=== PATIENT | female | born 1980 | race African-American/Black ===

== ENCOUNTER 2016-07-26 10:11 | Emergency (ER) | payer SELFPAY ==
[~2016-07-26] VITALS: Ht 157.5 cm; Wt 77.1 kg
[~2016-07-26 10:11] MED LIST: BACL20TA PO; CYCL5TAB PO; FERR-26 PO; GABA-585 PO; LISI2.5T PO; NORT25CA PO; PROAIR HFA8.5 GM IH; RIVA10TA PO; TOPI25TA32 PO
[2016-07-26 12:33] LABS: BASO % 1 % (0-3); EOS % 1 % (0-3); HEMATOCRIT 36.8 % (36.0-47.0); HEMOGLOBIN 11.8 g/dL (12.0-15.5); LYMPH # 2.2 x10^3/uL (1.0-4.8); LYMPH % 35 % (24-48); MEAN CORPUSCULAR HEMOGLOBIN 27 pg (25-35); MEAN CORPUSCULAR HGB CONC 32 g/dL (31-37); MEAN CORPUSCULAR VOLUME 84 fL (79-100); MONO % 9 % (0-9); NEUT % 54 % (31-73); PLATELET COUNT 197 x10^3/uL (140-400); RED BLOOD COUNT 4.39 x10^6/uL (3.50-5.40); RED CELL DISTRIBUTION WIDTH 17.3 % (11.5-14.5); WHITE BLOOD COUNT 6.3 x10^3/uL (4.0-11.0)
[2016-07-26] MEDS ORDERED: IV NORMAL SALINE 1000ML BAG 1,000 ML IV ONE (12:45)
[2016-07-26 13:00] VITALS: BP 105/69
[2016-07-26] MEDS ORDERED: ACETAMINOPHEN 325 MG TABLET. PO ONE (13:15)
[2016-07-26 13:16] LABS: CALCIUM 8.7 mg/dL (8.5-10.1); GFR 75.5; POTASSIUM 3.9 mmol/L (3.5-5.1)
[2016-07-26 13:21] LABS: ALBUMIN 3.3 g/dL (3.4-5.0); ALBUMIN/GLOBULIN RATIO 0.9 (1.0-1.7); TOTAL BILIRUBIN 0.2 mg/dL (0.2-1.0); TOTAL PROTEIN 6.9 g/dL (6.4-8.2)
[2016-07-26 13:29] LABS: BILIRUBIN,URINE NEGATIVE (NEG); GLUCOSE,URINE NEGATIVE (NEG); NITRITE,URINE NEGATIVE (NEG); PH,URINE 6.5; PROTEIN,URINE NEGATIVE (NEG-TRACE); UROBILINOGEN,URINE 0.2 mg/dL (0.2 mg/dL)
[2016-07-26 13:34] LABS: BARBITURATES NEG (NEG); BENZODIAZEPINES NEG (NEG); CANNABINOIDS NEG (NEG); COCAINE POS (NEG); METHADONE NEG (NEG); OPIATES POS (NEG); PHENCYCLIDINE POS (NEG)
[2016-07-26 13:35] LABS: ETHANOL, URINE NEG (NEG)
[2016-07-26 13:46] LABS: BACTERIA,URINE FEW /HPF (0-FEW); RBC,URINE 0 /HPF (0-2); SQUAMOUS EPITHELIAL CELL,UR MANY /LPF; WBC,URINE 20-40 /HPF (0-4)
[2016-07-26] MEDS ORDERED: NITROFURANTOIN MONOHYD/M-CRYST 100 MG CAPSULE. PO ONE (14:15)
[2016-07-26] MEDS ORDERED: OXCA300T3 PO (14:23)
[2016-07-26] MEDS ORDERED: NITR100C62 PO (14:23)
[2016-07-26] MEDS ORDERED: OXCARBAZEPINE 300 MG TABLET. PO STA (14:24)
--- NOTE | 2016-07-26 14:24 | PHYS DOC ---
Past Medical History Past Medical History: CVA, DVT, Hypertension, Hypothyroid, Kidney Stone, Seizure, Stroke, Other Additional Past Medical Histor: PEMBERTON'S PALSY, TRIGEMINAL NEURALGIA, PE,epilepsy ,clotting disorder Past Surgical History: , Tubal ligation Additional Past Surgical Histo: x 2 Additional Information: 06/14 ppd Alcohol Use: Occasionally Drug Use: Cocaine, Phencyclidine Social History Narrative: reports last used cocaine 4 days ago, PCP 1 week ago Adult General Chief Complaint Chief Complaint: SEIZURE HPI HPI Patient is a 36 year old female who presents with complaint of seizures. Patient states that she has had several seizures over the past few days. Patient states that she is had a within the last 24 hours. The patient states that she is on Trileptal therapy but ran out of her medication. While in the patient room, the patient reported that she had 2 more seizures. These were witnessed the nursing who stated that the patient was trying to get out of bed, and when being helped to the bed the patient started shaking her arms and stating that she was having a seizure. These episodes lasted a few minutes and patient was immediately able to converse during and after the episode. Patient has noted history of substance abuse. Patient states that she has not used PCP or cocaine in over a week. Patient does admit that she is following with [facility] for outpatient substance abuse treatment. Review of Systems Review of Systems Constitutional: Body aches, Denies fever or chills [] Eyes: Denies change in visual acuity, redness, or eye pain [] HENT: Denies nasal congestion or sore throat [] Respiratory: Denies cough or shortness of breath [] Cardiovascular: Denies chest pain or edema [] GI: Denies abdominal pain, nausea, vomiting, bloody stools or diarrhea [] : Denies dysuria or hematuria [] Musculoskeletal: Denies back pain or joint pain [] Integument: Denies rash or skin lesions [] Neurologic: Seizures, Denies headache, focal weakness or sensory changes [] Endocrine: Denies polyuria or polydipsia [] Current Medications Current Medications Current Medications Medications (Trade) Dose Ordered Sig/Zay Start Time Stop Time Status Last Admin Dose Admin Acetaminophen (Tylenol) 650 mg 1X ONCE 07/26/16 13:15 07/26/16 13:16 DC 07/26/16 13:05 650 MG Nitrofurantoin Macrocrystals (Macrobid) 100 mg 1X ONCE 07/26/16 14:15 07/26/16 14:16 DC 07/26/16 14:15 100 MG Oxcarbazepine (Trileptal) 450 mg 1X STAT 07/26/16 14:24 07/26/16 14:27 DC 07/26/16 14:24 450 MG Sodium Chloride (Iv Sodium Chloride 0.9% 1000ml Bag) 1,000 ml @ 1,000 mls/hr 1X ONCE 07/26/16 12:45 07/26/16 13:44 DC 07/26/16 12:45 1,000 MLS/HR Allergies Allergies Allergies Coded Allergies Type Severity Reaction Last Updated Verified ibuprofen Allergy Severe Angioedema. 01/10/14 No ketorolac Allergy Severe Angioedema 01/10/14 Yes naproxen Allergy Severe ANGIOEDEMA 06/02/15 Yes Physical Exam Physical Exam Constitutional: Alert, afebrile, no acute distress. [] HENT: Normocephalic, atraumatic, bilateral external ears normal, oropharynx moist, no oral exudates, nose normal. [] Eyes: PERRLA, EOMI, conjunctiva normal, no discharge. [] Neck: Normal range of motion, no tenderness, supple, no stridor. [] Cardiovascular:Heart rate regular rhythm, no murmur [] Lungs & Thorax: Bilateral breath sounds clear to auscultation [] Abdomen: Bowel sounds normal, soft, no tenderness, no masses, no pulsatile masses. [] Skin: Warm, dry, no erythema, no rash. [] Back: No tenderness, no CVA tenderness. [] Extremities: No tenderness, no cyanosis, no clubbing, ROM intact, no edema. [] Neurologic: Alert and oriented X 3, normal motor function, normal sensory function, no focal deficits noted. [] Current Patient Data Vital Signs Vital Signs Date Time Temp Pulse Resp B/P Pulse Ox O2 Delivery O2 Flow Rate FiO2 07/26/16 13:00 74 20 105/69 100 Room Air 07/26/16 11:15 97.8 97.8 Lab Values Laboratory Tests Test 07/26/16 12:10 07/26/16 12:57 07/26/16 13:10 07/26/16 13:45 White Blood Count 6.3x10^3/uL (4.0-11.0) Red Blood Count 4.39x10^6/uL (3.50-5.40) Hemoglobin 11.8g/dL (12.0-15.5) L Hematocrit 36.8% (36.0-47.0) Mean Corpuscular Volume 84fL (79-100) Mean Corpuscular Hemoglobin 27pg (25-35) Mean Corpuscular Hemoglobin Concent 32g/dL (31-37) Red Cell Distribution Width 17.3% (11.5-14.5) H Platelet Count 197x10^3/uL (140-400) Neutrophils (%) (Auto) 54% (31-73) Lymphocytes (%) (Auto) 35% (24-48) Monocytes (%) (Auto) 9% (0-9) Eosinophils (%) (Auto) 1% (0-3) Basophils (%) (Auto) 1% (0-3) Neutrophils # (Auto) 3.4x10^3uL (1.8-7.7) Lymphocytes # (Auto) 2.2x10^3/uL (1.0-4.8) Monocytes # (Auto) 0.6x10^3/uL (0.0-1.1) Eosinophils # (Auto) 0.1x10^3/uL (0.0-0.7) Basophils # (Auto) 0.0x10^3/uL (0.0-0.2) Lactic Acid Level 4.5mmol/L (0.4-2.0) *H 3.6mmol/L (0.4-2.0) H Sodium Level 141mmol/L (136-145) Potassium Level 3.9mmol/L (3.5-5.1) Chloride Level 106mmol/L (98-107) Carbon Dioxide Level 27mmol/L (21-32) Anion Gap 8 (6-14) Blood Urea Nitrogen 12mg/dL (7-20) Creatinine 1.0mg/dL (0.6-1.0) Estimated GFR (Cockcroft-Gault) 75.5 BUN/Creatinine Ratio 12 (6-20) Glucose Level 90mg/dL (70-99) Calcium Level 8.7mg/dL (8.5-10.1) Total Bilirubin 0.2mg/dL (0.2-1.0) Aspartate Amino Transferase (AST) 14U/L (15-37) L Alanine Aminotransferase (ALT) 17U/L (14-59) Alkaline Phosphatase 65U/L (46-116) Total Protein 6.9g/dL (6.4-8.2) Albumin 3.3g/dL (3.4-5.0) L Albumin/Globulin Ratio 0.9 (1.0-1.7) L Urine Collection Type Unknown Urine Color Yellow Urine Clarity Clear Urine pH 6.5 Urine Specific Ellis 1.010 Urine Protein Negativemg/dL (NEG-TRACE) Urine Glucose (UA) Negativemg/dL (NEG) Urine Ketones (Stick) Negativemg/dL (NEG) Urine Blood Negative (NEG) Urine Nitrite Negative (NEG) Urine Bilirubin Negative (NEG) Urine Urobilinogen Dipstick 0.2mg/dL (0.2 mg/dL) Urine Leukocyte Esterase Large (NEG) Urine RBC 0/HPF (0-2) Urine WBC 20-40/HPF (0-4) Urine Squamous Epithelial Cells Many/LPF Urine Bacteria Few/HPF (0-FEW) Urine Opiates Screen Pos (NEG) Urine Methadone Screen Neg (NEG) Urine Barbiturates Neg (NEG) Urine Phencyclidine Screen Pos (NEG) Urine Amphetamine/Methamphetamine Neg (NEG) Urine Benzodiazepines Screen Neg (NEG) Urine Cocaine Screen Pos (NEG) Urine Cannabinoids Screen Neg (NEG) Urine Ethyl Alcohol Neg (NEG) Laboratory Tests 07/26/16 12:10 Laboratory Tests 07/26/16 12:57 EKG EKG Interpreted by me: Heart rate 77, sinus rhythm, prolonged SD interval, normal axis, no acute ST/T-wave abnormalities present [] Radiology/Procedures Radiology/Procedures Not performed [] Course & Med Decision Making Course & Med Decision Making Pertinent Labs and Imaging studies reviewed. (See chart for details) Patient was given IV fluids in the emergency department. Patient given Tylenol for pain. The patient was found have an elevated lactic acid level which is suspicious for epileptic seizure activity. I have low suspicion for sepsis in this patient as the patient does not have fevers or elevated white count. The patient was found to have an incidental urinary tract infection and was started on oral Macrobid therapy. Patient's vital signs are stable at this time. The patient was started back on Trileptal therapy. Patient was also found to be positive for cocaine which would be suspicious for recent drug use aside from what she admitted to. I sat and spoke and agree with the patient regarding her substance abuse and how this is likely affecting her seizure disorder. The patient will need to discontinue any use of drugs and continue on her seizure medication at home for control. The patient was referred to primary care with recommended follow-up in 3-5 daysand return to emergency department for any worsening symptoms. Dragon Disclaimer Dragon Disclaimer This electronic medical record was generated, in whole or in part, using a voice recognition dictation system. Departure Departure Impression: Primary Impression: UTI (urinary tract infection) Additional Impressions: Polysubstance abuse Seizure disorder Disposition: ADMITTED INPATIENT Condition: STABLE Referrals: KARSTEN GOMEZ (PCP) Patient Instructions: Seizure, Adult, Substance Abuse-Brief, Urinary Tract Infection Additional Instructions: Follow-up the primary doctor in the next 3-5 days. Continue to follow with [facility] for outpatient substance abuse treatment. Return to the emergency department for any worsening symptoms. Scripts Nitrofurantoin Monohyd/M-Cryst (Macrobid 100 Mg Capsule)100 Mg Capsule1 Cap PO BID #14 CAP Prov:JOVON SORTO MD 07/26/16 Oxcarbazepine (Trileptal)300 Mg [id number] Mg PO BID #90 Prov:JOVON SORTO MD 07/26/16 Problem Qualifiers Primary Impression: UTI (urinary tract infection) Urinary tract infection type: site unspecified Hematuria presence: without hematuria Qualified Code: N39.0 - Urinary tract infection, site not specified JOVON SORTO MD Jul 26, 2016 14:23
--- NOTE | 2016-07-26 14:45 | EKG ---
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
== END 2016-07-26 15:12 | disposition home or self-care (01) ==
LOC: ER 10:11
DX: G40.909 Epilepsy, unspecified, not intractable, without status epilepticus (principal); N39.0 Urinary tract infection, site not specified; F19.10 Other psychoactive substance abuse, uncomplicated; F14.10 Cocaine abuse, uncomplicated; F16.10 Hallucinogen abuse, uncomplicated; E03.9 Hypothyroidism, unspecified; I10 Essential (primary) hypertension; F17.200 Nicotine dependence, unspecified, uncomplicated; Z98.51 Tubal ligation status; Z86.73 Personal history of transient ischemic attack (TIA), and cerebral infarction without residual deficits; Z87.442 Personal history of urinary calculi; Z88.6 Allergy status to analgesic agent; Z88.8 Allergy status to other drugs, medicaments and biological substances
CPT/HCPCS: 36415; 80053; 81001; 83605; 85027; 87086; 93005; 96360; 99285; G0481; J7030; 99284-25

== ENCOUNTER 2016-10-03 13:33 | Emergency (ER) | payer SELFPAY ==
[~2016-10-03] VITALS: Ht 154.9 cm; Wt 79.4 kg
[~2016-10-03 13:33] MED LIST changes: +NITR100C62 PO; +OXCA300T3 PO
[2016-10-03] MEDS ORDERED: IV NORMAL SALINE 1000ML BAG 1,000 ML IV ONE (14:30)
[2016-10-03] MEDS ORDERED: FENTANYL PF 100 MCG/2 ML VIAL. IV ONE (14:30)
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
[2016-10-03 15:20] LABS: BASO % 0 % (0-3); EOS % 1 % (0-3); HEMOGLOBIN 11.7 g/dL (12.0-15.5); LYMPH # 2.6 x10^3/uL (1.0-4.8); LYMPH % 35 % (24-48); MEAN CORPUSCULAR HEMOGLOBIN 30 pg (25-35); MEAN CORPUSCULAR HGB CONC 35 g/dL (31-37); MEAN CORPUSCULAR VOLUME 84 fL (79-100); MONO % 7 % (0-9); NEUT % 57 % (31-73); PLATELET COUNT 212 x10^3/uL (140-400); RED BLOOD COUNT 3.94 x10^6/uL (3.50-5.40); RED CELL DISTRIBUTION WIDTH 16.6 % (11.5-14.5); WHITE BLOOD COUNT 7.4 x10^3/uL (4.0-11.0)
[2016-10-03] MEDS ORDERED: IOHEXOL 350 MG/ML 100 ML VIAL. IV ONE (15:30)
[2016-10-03 15:33] LABS: CALCIUM 8.7 mg/dL (8.5-10.1); CREATININE 0.8 mg/dL (0.6-1.0); GFR 97.7; POTASSIUM 3.5 mmol/L (3.5-5.1)
[2016-10-03] MEDS ORDERED: MORPHINE SULFATE 4 MG/ML DISP.SYRIN. IV ONE (15:45)
--- NOTE | 2016-10-03 16:20 | RAD ---
AP portable chest radiograph 10/03/2016 Clinical History: Chest pain since earlier today. An AP portable erect digital radiograph of the chest was obtained. Comparison study is dated 04/09/2013. The cardiac silhouette is normal in size. The thoracic is minimally tortuous. A calcified left hilar/mediastinal lymph node is unchanged. No acute pulmonary infiltrate is seen. No pleural effusion or pneumothorax is noted. The osseous structures are grossly intact. Impression: No acute abnormality is seen.
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
[2016-10-03] MEDS ORDERED: HYDROMORPHONE 2 MG/ML VIAL. IV ONE ×2 (18:00→19:00)
[2016-10-03] MEDS ORDERED: HYDR-971 PO (18:07)
[2016-10-03 18:10] VITALS: BP 111/51
[2016-10-03] MEDS ORDERED: OXCARBAZEPINE 300 MG TABLET. PO STA (18:39)
[2016-10-03] MEDS ORDERED: OXCA600T3 PO (18:42)
--- NOTE | 2016-10-03 22:08 | EKG ---
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
== END 2016-10-03 19:12 | disposition home or self-care (01) ==
LOC: ER 13:33
DX: R07.89 Other chest pain (principal); I10 Essential (primary) hypertension; E03.9 Hypothyroidism, unspecified; G40.909 Epilepsy, unspecified, not intractable, without status epilepticus; F12.10 Cannabis abuse, uncomplicated; F14.10 Cocaine abuse, uncomplicated; F16.10 Hallucinogen abuse, uncomplicated; Z86.711 Personal history of pulmonary embolism; Z86.73 Personal history of transient ischemic attack (TIA), and cerebral infarction without residual deficits; Z79.01 Long term (current) use of anticoagulants; Z86.718 Personal history of other venous thrombosis and embolism; Z88.6 Allergy status to analgesic agent; V89.2XXA Person injured in unspecified motor-vehicle accident, traffic, initial encounter; W22.12XA Striking against or struck by front passenger side automobile airbag, initial encounter; Y93.89 Activity, other specified; Y92.413 State road as the place of occurrence of the external cause; Y99.8 Other external cause status
CPT/HCPCS: 36415; 71010; 71275; 80048; 84484; 85027; 93005; 96361; 96374; 96375; 96376; 99285; J1170; J2270; J3010; J7030; Q9967

== ENCOUNTER 2016-10-31 14:28 | Emergency (ER) | payer SELFPAY ==
[~2016-10-31] VITALS: Ht 157.5 cm; Wt 78.9 kg
[~2016-10-31 14:28] MED LIST changes: +HYDR-971 PO; +OXCA600T3 PO
[2016-10-31] MEDS ORDERED: CYCLOBENZAPRINE 10 MG TABLET. PO ONE (15:15)
[2016-10-31] MEDS ORDERED: ACETAMINOPHEN 500 MG TABLET PO ONE (15:15)
--- NOTE | 2016-10-31 15:37 | PHYS DOC ---
Past Medical History Past Medical History: Anxiety, CVA, Depression, DVT, Hypertension, Hypothyroid , Kidney Stone, Seizure, Stroke, UTI, Other Additional Past Medical Histor: Anderson's Palsy,TRIG neuralgia,PE,epilepsy, clotting disorder,neuropathy Past Surgical History: , Tubal ligation Additional Past Surgical Histo: x 2 Alcohol Use: Occasionally Drug Use: Cocaine, Marijuana, Phencyclidine Adult General Chief Complaint Chief Complaint: SEIZURE HPI HPI Patient is a 36 year old female who presents by EMS for left neck pain and left posterior head pain after witnessed seizure activity. She has chronic daily seizures. She was noted to have a "3 seizures" at one episode. She fell out of her chair at lunch when this happened. She notes mild right lateral leg pain as well, but denies restriction in ROM or groin pain. She denies dizziness , nausea or vomiting, vision changes, speech difficulty, swallowing difficulty, chest pain, dyspnea, abdominal pain, fever or chills, back pain, joint pain that was not otherwise noted. States she is compliant with her seizure medications. Denies recent substance abuse. Review of Systems Review of Systems Constitutional: Denies fever or chills [] Eyes: Denies change in visual acuity, redness, or eye pain [] HENT: Denies nasal congestion or sore throat [] Respiratory: Denies cough or shortness of breath [] Cardiovascular: No additional information not addressed in HPI [] GI: Denies abdominal pain, nausea, vomiting, bloody stools or diarrhea [] : Denies dysuria or hematuria [] Musculoskeletal: Denies back pain or joint pain [] Integument: Denies rash or skin lesions [] Neurologic: Denies focal weakness or sensory changes [] Endocrine: Denies polyuria or polydipsia [] Current Medications Current Medications Current Medications Medications (Trade) Dose Ordered Sig/Zay Start Time Stop Time Status Last Admin Dose Admin Acetaminophen (Tylenol) 500 mg 1X ONCE 10/31/16 15:15 10/31/16 15:16 DC 10/31/16 15:42 500 MG Cyclobenzaprine HCl (Flexeril) 5 mg 1X ONCE 10/31/16 15:15 10/31/16 15:16 DC 10/31/16 15:42 5 MG Allergies Allergies Allergies Coded Allergies Type Severity Reaction Last Updated Verified ibuprofen Allergy Severe Angioedema. 01/10/14 No ketorolac Allergy Severe Angioedema 01/10/14 Yes naproxen Allergy Severe ANGIOEDEMA 06/02/15 Yes Physical Exam Physical Exam Constitutional: Well developed, well nourished, no acute distress, non-toxic appearance. [] HENT: Normocephalic, atraumatic, bilateral external ears normal, oropharynx moist, no oral exudates, nose normal. No marques sign, hemotympanum, or raccoon eyes. [] Eyes: PERRLA, EOMI, conjunctiva normal, no discharge. [] Neck: Has left paraspinal cervical tenderness, has trouble rotating to the right due to left neck pain, c-collar placed. No palpable or visual abnormality. [] Cardiovascular:Heart rate regular rhythm [] Lungs & Thorax: Bilateral breath sounds clear to auscultation [] Abdomen: Bowel sounds normal, soft, no tenderness. [] Skin: Warm, dry, no erythema, no rash. [] Back: No tenderness, no CVA tenderness. [] Extremities: No bony tenderness, no deformity, no swelling, ROM intact, no edema. Has mild soft tissue tenderness through right lateral thigh, no palpable or visual abnormality. [] Neurologic: Alert and oriented X 3, normal motor function, normal sensory function, no focal deficits noted. [] Psychologic: Affect normal, judgement normal, mood normal. [] Current Patient Data Vital Signs Vital Signs Date Time Temp Pulse Resp B/P (MAP) Pulse Ox O2 Delivery O2 Flow Rate FiO2 10/31/16 15:45 85 14 110/62 (78) 98 Room Air 10/31/16 14:39 98.7 98.7 Lab Values Laboratory Tests Test 10/31/16 15:37 Sodium Level 139 mmol/L (136-145) Potassium Level 3.8 mmol/L (3.5-5.1) Chloride Level 105 mmol/L (98-107) Carbon Dioxide Level 27 mmol/L (21-32) Anion Gap 7 (6-14) Blood Urea Nitrogen 8 mg/dL (7-20) Creatinine 0.9 mg/dL (0.6-1.0) Estimated GFR (Cockcroft-Gault) 85.2 Glucose Level 95 mg/dL (70-99) Calcium Level 8.4 mg/dL (8.5-10.1) L Laboratory Tests 10/31/16 15:37 Radiology/Procedures Radiology/Procedures CT cervical spine without contrast Impression: 1. Negative for fracture. 2. Straightening of cervical lordosis may be positional or secondary to muscle spasm. 3. 20 mm right thyroid nodule. DICTATED and SIGNED BY: TONEY JACKMAN MD DATE: 10/31/16 1606 Course & Med Decision Making Course & Med Decision Making Pertinent Labs and Imaging studies reviewed. (See chart for details) Workup is unremarkable other than thyroid nodule seen on CT. C-collar was removed. She feels better after medications and has better neck range of motion. She can range past 45 bilaterally, she can flex and extend appropriately. She intends to deny numbness, tingling, weakness. Return precautions given. She understands and agrees with plan. Dragon Disclaimer Dragon Disclaimer This electronic medical record was generated, in whole or in part, using a voice recognition dictation system. Departure Departure Impression: Primary Impression: Seizure disorder Additional Impressions: Neck pain on left side Right leg pain Thyroid nodule Disposition: HOME, SELF-CARE Condition: STABLE Referrals: NO PCP (PCP) Patient Instructions: Seizure, Adult, [id number] Additional Instructions: Take Tylenol as needed for pain. Follow-up with your primary care doctor for a thyroid nodule seen on your CT scan. Follow-up with your neurologist for your seizures. Return for any concerns. Problem Qualifiers Marcus HACKETT MD October 31, 2016 15:37
[2016-10-31 16:01] LABS: CALCIUM 8.4 mg/dL (8.5-10.1); CREATININE 0.9 mg/dL (0.6-1.0); GFR 85.2; POTASSIUM 3.8 mmol/L (3.5-5.1)
--- NOTE | 2016-10-31 16:11 | RAD ---
Indication: Neck pain after seizure. Technique: Axial images and coronal and sagittal reformatted images are provided. No comparison is available. One or more of the following individualized dose reduction techniques were utilized for this examination: 1. Automated exposure control 2. Adjustment of the mA and/or kV according to patient size 3. Use of iterative reconstruction technique Findings: There is straightening of cervical lordosis which may be secondary to muscle spasm or positioning. A fracture or subluxation is not identified. Prevertebral soft tissues are within normal limits. Craniovertebral junction is unremarkable. Lung apices are clear. Right thyroid nodule measures 20 mm. Impression: 1. Negative for fracture. 2. Straightening of cervical lordosis may be positional or secondary to muscle spasm. 3. 20 mm right thyroid nodule.
[2016-10-31 16:31] VITALS: BP 119/58
== END 2016-10-31 16:34 | disposition home or self-care (01) ==
LOC: ER 15:15
DX: G40.909 Epilepsy, unspecified, not intractable, without status epilepticus (principal); M54.2 Cervicalgia; M79.604 Pain in right leg; E04.1 Nontoxic single thyroid nodule; F41.9 Anxiety disorder, unspecified; F32.9 Major depressive disorder, single episode, unspecified; I10 Essential (primary) hypertension; E03.9 Hypothyroidism, unspecified; G51.0 Bell's palsy; F14.10 Cocaine abuse, uncomplicated; F12.10 Cannabis abuse, uncomplicated; F16.10 Hallucinogen abuse, uncomplicated; G62.9 Polyneuropathy, unspecified; Z86.718 Personal history of other venous thrombosis and embolism; Z86.711 Personal history of pulmonary embolism; Z88.6 Allergy status to analgesic agent; Z86.73 Personal history of transient ischemic attack (TIA), and cerebral infarction without residual deficits; Z87.442 Personal history of urinary calculi; Z87.440 Personal history of urinary (tract) infections
CPT/HCPCS: 36415; 72125; 80048; 99285-25

== ENCOUNTER 2017-06-30 22:23 | Emergency (ER) | payer SELFPAY ==
[2017-06-30 23:03] LABS: COLOR,URINE RED; GLUCOSE,URINE NEGATIVE (NEG); NITRITE,URINE POSITIVE (NEG); PROTEIN,URINE >=300 mg/dL (NEG-TRACE)
[2017-06-30 23:17] LABS: NEG OBC UR NEG; POS OBC UR POS; U PREG PATIENT NEGATIVE (NEG)
[2017-06-30 23:19] LABS: BILIRUBIN,URINE SMALL (NEG); CLARITY,URINE BLOODY
[2017-06-30 23:20] LABS: BACTERIA,URINE MANY /HPF (0-FEW); RBC,URINE TNTC /HPF (0-2); SQUAMOUS EPITHELIAL CELL,UR MANY /LPF; WBC,URINE 20-40 /HPF (0-4)
[2017-06-30] MEDS: metroNIDAZOLE 500 MG TABLET PO (23:35)
[2017-06-30] MEDS: AZITHROMYCIN 250 MG TABLET. PO (23:36)
[2017-06-30] MEDS: cefTRIAXone IM 250 MG VIAL IM (23:37)
[2017-07-04 16:20] LABS: CHLAMYDIA PROBE Negative (Negative); GC PROBE Negative (Negative)
== END 2017-06-30 23:43 | disposition home or self-care (01) ==
LOC: ER 22:23
DX: Z11.3 Encounter for screening for infections with a predominantly sexual mode of transmission (principal); N39.0 Urinary tract infection, site not specified; I10 Essential (primary) hypertension; E05.90 Thyrotoxicosis, unspecified without thyrotoxic crisis or storm; Z88.6 Allergy status to analgesic agent
CPT/HCPCS: 81001; 81025; 87086; 87186; 87491; 87591; 96372; 99284; J0696; Q0111; Q0144

== ENCOUNTER 2017-09-09 17:18 | Emergency (ER) | payer MEDICAID ==
[2017-09-09] MEDS ORDERED: fentaNYL PF VIAL 100 MCG/2 ML VIAL IV (19:15)
[2017-09-09] MEDS: oxyCODONE/APAP 5/325 1 TAB TABLET PO (20:23)
== END 2017-09-09 20:42 | disposition home or self-care (01) ==
LOC: ER 17:18
DX: M25.551 Pain in right hip (principal); M25.561 Pain in right knee; G40.909 Epilepsy, unspecified, not intractable, without status epilepticus; Z86.2 Personal history of diseases of the blood and blood-forming organs and certain disorders involving the immune mechanism; Z88.5 Allergy status to narcotic agent; Z88.6 Allergy status to analgesic agent; Z88.8 Allergy status to other drugs, medicaments and biological substances
CPT/HCPCS: 99283

== ENCOUNTER 2018-02-24 13:14 | Emergency (ER) | payer MEDICAID ==
[~2018-02-24] VITALS: Ht 157.5 cm; Wt 81.6 kg
[~2018-02-24 13:14] MED LIST changes: -FERR-26 PO; +FERR325T14 PO; +GABA300C8 PO; +OXCA300T19 PO; +OXYC-323 PO; -TOPI25TA32 PO; +TOPI25TA52 PO
[2018-02-24] MEDS ORDERED: IPRATRPIUM/ALBUTEROL 0.5/2.5MG 3 ML NEBU. NEB ONE (13:45)
[2018-02-24] MEDS ORDERED: methylPREDNISolone SOD SUCC PF 125 MG/2 ML VIAL. IV ONE (13:45)
[2018-02-24] MEDS ORDERED: ACETAMINOPHEN 500 MG TABLET PO ONE (14:00)
--- NOTE | 2018-02-24 14:10 | RAD ---
Chest, PA and Lateral: Technique: PA and lateral views of the chest were obtained. History: Shortness of breath, wheezing. Comparison: 10/03/2016. Findings: The heart and pulmonary vasculature appear within normal limits. The lungs are clear. The pleural margins are clear. Calcified left hilar lymph nodes again identified. Impression: No acute chest process is seen. Electronically signed by: Ned Smith MD (02/24/2018 2:07 PM) [id number]
--- NOTE | 2018-02-24 14:22 | PHYS DOC ---
Past Medical History Past Medical History: Hypertension, Hyperthyroid, Migraines, Seizure Additional Past Medical Histor: clotting disorder/Protein deficiency, Trigeminal neuralgia, [place] Palsy Past Surgical History: Additional Past Surgical Histo: SKIN GRAFT Alcohol Use: Occasionally Drug Use: None Adult General Chief Complaint Chief Complaint: MULTIPLE COMPLAINTS HPI HPI Patient is a 37 year old female who presents with cough and complaints of having 6 seizures last night witnessed by her daughter. The patient states that she was recently discharged from [facility]. They did start her on a blood thinner. The patient states that she was there with pneumonia. They did not call EMS or have her treated last night for her reported seizure activity. She denies seizure activity today. She states that she has been taking all of her discharge medications. Review of Systems Review of Systems Constitutional: Denies fever or chills [] Eyes: Denies change in visual acuity, redness, or eye pain [] HENT: Denies nasal congestion or sore throat [] Respiratory: See history of present illness Cardiovascular: No additional information not addressed in HPI [] GI: Denies abdominal pain, nausea, vomiting, bloody stools or diarrhea [] : Denies dysuria or hematuria [] Musculoskeletal: See history of present illness Integument: Denies rash or skin lesions [] Neurologic: See history of present illness Endocrine: Denies polyuria or polydipsia [] All other systems were reviewed and found to be within normal limits, except as documented in this note. Current Medications Current Medications Current Medications Medications (Trade) Dose Ordered Sig/Zay Start Time Stop Time Status Last Admin Dose Admin Acetaminophen (Tylenol) 1,000 mg 1X ONCE 02/24/18 14:00 02/24/18 14:01 DC Albuterol Sulfate (Ventolin Neb Soln) 10 mg 1X ONCE 02/24/18 14:30 02/24/18 14:31 DC 02/24/18 15:16 10 MG Albuterol/ Ipratropium (Duoneb) 3 ml 1X ONCE 02/24/18 13:45 02/24/18 13:46 DC 02/24/18 13:43 3 ML Diphenhydramine HCl (Benadryl) 50 mg 1X ONCE 02/24/18 14:30 02/24/18 14:31 DC 02/24/18 14:38 50 MG Methylprednisolone Sodium Succinate (SOLU-Medrol 125MG VIAL) 125 mg 1X ONCE 02/24/18 13:45 02/24/18 13:46 DC 02/24/18 14:01 125 MG Allergies Allergies Allergies Coded Allergies Type Severity Reaction Last Updated Verified ibuprofen Allergy Severe Angioedema. 11/02/16 No ketorolac Allergy Severe Angioedema 11/02/16 Yes naproxen Allergy Severe ANGIOEDEMA 11/02/16 Yes lisinopril Allergy Unknown 09/09/17 Yes prochlorperazine Allergy Unknown 09/09/17 Yes Physical Exam Physical Exam Constitutional: Well developed, well nourished, no acute distress, non-toxic appearance. [] HENT: Normocephalic, atraumatic, bilateral external ears normal, oropharynx moist, no oral exudates, nose normal. [] Eyes: PERRLA, EOMI, conjunctiva normal, no discharge. [] Neck: Normal range of motion, no tenderness, supple, no stridor. [] Cardiovascular:Heart rate regular rhythm, no murmur [] Lungs & Thorax: Bilateral breath sounds are coarse with congestion noted to her throat Abdomen: Bowel sounds normal, soft, no tenderness, no masses, no pulsatile masses. [] Skin: Warm, dry, no erythema, no rash. [] Back: No tenderness, no CVA tenderness. [] Extremities: No tenderness, no cyanosis, no clubbing, ROM intact, no edema. [] Neurologic: Alert and oriented X 3, normal motor function, normal sensory function, no focal deficits noted. [] Psychologic: Affect normal, judgement normal, mood normal. [] Current Patient Data Vital Signs Vital Signs Date Time Temp Pulse Resp B/P (MAP) Pulse Ox O2 Delivery O2 Flow Rate FiO2 02/24/18 15:16 98 Room Air 02/24/18 14:52 75 97/65 (76) 02/24/18 13:18 98.2 20 98.2 Lab Values Laboratory Tests Test 02/24/18 14:40 Urine Collection Type Unknown Urine Color Yellow Urine Clarity Clear Urine pH 6.5 Urine Specific [place] 1.025 Urine Protein Negative mg/dL (NEG-TRACE) Urine Glucose (UA) Negative mg/dL (NEG) Urine Ketones (Stick) Negative mg/dL (NEG) Urine Blood Negative (NEG) Urine Nitrite Negative (NEG) Urine Bilirubin Negative (NEG) Urine Urobilinogen Dipstick 0.2 mg/dL (0.2 mg/dL) Urine Leukocyte Esterase Moderate (NEG) Urine RBC Occ /HPF (0-2) Urine WBC 5-10 /HPF (0-4) Urine Squamous Epithelial Cells Many /LPF Urine Bacteria Moderate /HPF (0-FEW) Urine Opiates Screen Pos (NEG) Urine Methadone Screen Neg (NEG) Urine Barbiturates Pos (NEG) Urine Phencyclidine Screen Pos (NEG) Urine Amphetamine/Methamphetamine Neg (NEG) Urine Benzodiazepines Screen Pos (NEG) Urine Cocaine Screen Neg (NEG) Urine Cannabinoids Screen Neg (NEG) Urine Ethyl Alcohol Neg (NEG) EKG EKG [] Radiology/Procedures Radiology/Procedures []PATIENT: MANOLO LEUNG LACCOUNT: [id number]#: [id number] : 1980 LOCATION: ER AGE: 37 SEX: F EXAM STATUS: REG ER ORD. PHYSICIAN: HUSSAIN POLLACK APRN REASON: soa PROCEDURE: CHEST PA & LATERAL Chest, PA and Lateral: Technique: PA and lateral views of the chest were obtained. History: Shortness of breath, wheezing. Comparison: 10/03/2016. Findings: The heart and pulmonary vasculature appear within normal limits. The lungs are clear. The pleural margins are clear. Calcified left hilar lymph nodes again identified. Impression: No acute chest process is seen. Electronically signed by: Ned Smith MD (02/24/2018 2:07 PM) [id number] DICTATED and SIGNED BY: NED SMITH MD DATE: 02/24/18 1403 Course & Med Decision Making Course & Med Decision Making Pertinent Labs and Imaging studies reviewed. (See chart for details) []The patient was given Solu-Medrol in the emergency department she was given a DuoNeb inhaler and an hour-long albuterol treatment. The patient's chest x-ray was clear and showed no symptoms of pneumonia. The patient has repeatedly requested narcotic pain medication. She was given a dose of Benadryl for her headache. The patient's toxicology showed that she is currently on multiple substances. Dragon Disclaimer Dragon Disclaimer This electronic medical record was generated, in whole or in part, using a voice recognition dictation system. Departure Departure Impression: Primary Impression: Polysubstance abuse Additional Impressions: Myalgia Bronchitis Disposition: HOME, SELF-CARE Condition: STABLE Referrals: UNKNOWN PCP NAME (PCP) Patient Instructions: Bronchitis, Myalgia, Adult, Polysubstance Abuse Additional Instructions: Continue to take your discharge medications from your recent hospitalization. Follow-up with your primary care provider for further evaluation in 2 days or return to the emergency department if worsening. Problem Qualifiers HUSSAIN POLLACK PLATFORM LOADER Feb 24, 2018 14:22
[2018-02-24] MEDS ORDERED: ALBUTEROL SULFATE 2.5 MG/3 ML NEBU. CONT NEB ONE (14:30)
[2018-02-24] MEDS ORDERED: diphenhydrAMINE 50 MG/ML VIAL IVP ONE (14:30)
[2018-02-24 14:50] LABS: BILIRUBIN,URINE NEGATIVE (NEG); CLARITY,URINE CLEAR; COLOR,URINE YELLOW; NITRITE,URINE NEGATIVE (NEG); PH,URINE 6.5; PROTEIN,URINE NEGATIVE (NEG-TRACE); UROBILINOGEN,URINE 0.2 mg/dL (0.2 mg/dL)
[2018-02-24 15:00] LABS: AMPHETAMINE/METHAMPHETAMINE NEG (NEG); BARBITURATES POS (NEG); BENZODIAZEPINES POS (NEG); CANNABINOIDS NEG (NEG); COCAINE NEG (NEG); METHADONE NEG (NEG); OPIATES POS (NEG); PHENCYCLIDINE POS (NEG)
[2018-02-24 15:01] LABS: BACTERIA,URINE MODERATE /HPF (0-FEW); RBC,URINE OCC /HPF (0-2); SQUAMOUS EPITHELIAL CELL,UR MANY /LPF
[2018-02-24 16:52] VITALS: BP 124/60
== END 2018-02-24 17:05 | disposition home or self-care (01) ==
LOC: ER 13:14
DX: J40 Bronchitis, not specified as acute or chronic (principal); M79.1 Myalgia; F19.10 Other psychoactive substance abuse, uncomplicated; G43.909 Migraine, unspecified, not intractable, without status migrainosus; I10 Essential (primary) hypertension; Z88.6 Allergy status to analgesic agent; Z88.5 Allergy status to narcotic agent; Z88.8 Allergy status to other drugs, medicaments and biological substances
CPT/HCPCS: 71046; 80307; 81001; 87086; 94640; 96374; 96375; 99285; J1200; J2930; J7613; J7620; G0479

== ENCOUNTER 2018-02-26 16:55 | Emergency (ER) | payer MEDICAID ==
[~2018-02-26] VITALS: Ht 165.1 cm; Wt 81.6 kg
[2018-02-26 16:58] VITALS: BP 118/65
--- NOTE | 2018-02-26 17:15 | PHYS DOC ---
Past Medical History Past Medical History: Hypertension, Hyperthyroid, Migraines, Seizure Additional Past Medical Histor: clotting disorder/Protein deficiency, Trigeminal neuralgia, [place] Palsy Past Surgical History: Additional Past Surgical Histo: SKIN GRAFT Smoking: Cigarettes Alcohol Use: Occasionally Drug Use: None Adult General Chief Complaint Chief Complaint: SEIZURE HPI HPI Patient is a 37-year-old -[place] female presents to the emergency department for evaluation. EMS was reportedly call for seizure-like activity. The patient states that she has had 4 seizures today. She states that she is not necessarily recall her seizures but her daughter had told her she had seizures. She does have a history of epilepsy. She states she takes several seizure medications and reports compliance with her medications. She also reports being on Xarelto, due to a prior history of venous thromboembolic disease. EMS reports that during her transport, the patient would have episodes where she would clench all 4 extremities, but she was conversive and speaking during these episodes. I reviewed the patient's most recent inpatient visit here , where she had an admission for similar symptoms about a year ago. She had multiple episodes in the emergency department of seizure-like activity, which were according to the notes, felt to be pdyuhw-ahfzpqw-ovar activity. The patient states that she is followed by a neurologist at . There are no alleviating or exacerbating factors to the patient's symptoms. The patient was given 5 mg of Versed IM by EMS. The patient was recently seen in this emergency department. Her last ER visit, an attendant test results have been reviewed. Review of Systems Review of Systems Constitutional: Denies fever or chills [] Eyes: Denies change in visual acuity, redness, or eye pain [] HENT: Denies nasal congestion or sore throat [] Respiratory: Denies cough or shortness of breath [] Cardiovascular:The patient denies any shortness of breath, chest pain, palpitations, or orthopnea [] GI: Denies abdominal pain, nausea, vomiting, bloody stools or diarrhea [] : Denies dysuria or hematuria. Denies [] Musculoskeletal: Denies back pain or joint pain [] Integument: Denies rash or skin lesions [] Neurologic: Denies focal weakness or sensory changes. Reoprts mild BASILIO, reports Sz like activity. [] Endocrine: Denies polyuria or polydipsia [] All other systems were reviewed and found to be within normal limits, except as documented in this note. Current Medications Current Medications Current Medications Medications (Trade) Dose Ordered Sig/Zay Start Time Stop Time Status Last Admin Dose Admin Acetaminophen (Tylenol) 650 mg 1X ONCE 02/26/18 19:15 02/26/18 19:21 DC Allergies Allergies Allergies Coded Allergies Type Severity Reaction Last Updated Verified ibuprofen Allergy Severe Angioedema. 11/02/16 No ketorolac Allergy Severe Angioedema 11/02/16 Yes naproxen Allergy Severe ANGIOEDEMA 11/02/16 Yes lisinopril Allergy Unknown 09/09/17 Yes prochlorperazine Allergy Unknown 09/09/17 Yes Physical Exam Physical Exam PHYSICAL EXAM: CONSTITUTIONAL: Well developed, well nourished HEAD: normocephalic, atraumatic EENT: PERRL, EOMI. Conjunctivae normal color, sclerae non-icteric; moist mucous membranes. NECK: Supple, non-tender; no meningismus. LUNGS: There are mild scattered wheezes, breathing even and unlabored. Normal air movement. HEART: Regular rate and rhythm, no murmur CHEST: No deformity; non-tender ABDOMEN: The abdomen is soft, and non-tender, no masses or bruits. EXTREM: Normal ROM; no deformity, no calf tenderness. Normal pulses palpable in all extremities. There is no pedal edema. SKIN: No rash; no diaphoresis. There are scars on the right greater than left lower extremity. NEURO: The patient is somnolent but arousable, normal cognition; CN's grossly intact; strength grossly intact without focal deficit. BACK: No CVA TTP. Current Patient Data Vital Signs Vital Signs Date Time Temp Pulse Resp B/P (MAP) Pulse Ox O2 Delivery O2 Flow Rate FiO2 02/26/18 16:58 98.2 76 18 118/65 (82) 99 Room Air 98.2 Lab Values Laboratory Tests Test 02/26/18 18:30 02/26/18 19:07 White Blood Count 9.4 x10^3/uL (4.0-11.0) Red Blood Count 4.57 x10^6/uL (3.50-5.40) Hemoglobin 12.3 g/dL (12.0-15.5) Hematocrit 37.1 % (36.0-47.0) Mean Corpuscular Volume 81 fL (79-100) Mean Corpuscular Hemoglobin 27 pg (25-35) Mean Corpuscular Hemoglobin Concent 33 g/dL (31-37) Red Cell Distribution Width 20.1 % (11.5-14.5) H Platelet Count 247 x10^3/uL (140-400) Neutrophils (%) (Auto) 53 % (31-73) Lymphocytes (%) (Auto) 38 % (24-48) Monocytes (%) (Auto) 7 % (0-9) Eosinophils (%) (Auto) 1 % (0-3) Basophils (%) (Auto) 1 % (0-3) Neutrophils # (Auto) 5.0 x10^3uL (1.8-7.7) Lymphocytes # (Auto) 3.6 x10^3/uL (1.0-4.8) Monocytes # (Auto) 0.7 x10^3/uL (0.0-1.1) Eosinophils # (Auto) 0.1 x10^3/uL (0.0-0.7) Basophils # (Auto) 0.1 x10^3/uL (0.0-0.2) Platelet Estimate Adequate (ADEQUATE) Anisocytosis Mod Sodium Level 137 mmol/L (136-145) Potassium Level 3.5 mmol/L (3.5-5.1) Chloride Level 102 mmol/L (98-107) Carbon Dioxide Level 23 mmol/L (21-32) Anion Gap 12 (6-14) Blood Urea Nitrogen 13 mg/dL (7-20) Creatinine 0.9 mg/dL (0.6-1.0) Estimated GFR (Cockcroft-Gault) 84.8 BUN/Creatinine Ratio 14 (6-20) Glucose Level 86 mg/dL (70-99) Calcium Level 9.0 mg/dL (8.5-10.1) Magnesium Level 2.1 mg/dL (1.8-2.4) Total Bilirubin 0.2 mg/dL (0.2-1.0) Aspartate Amino Transferase (AST) 21 U/L (15-37) Alanine Aminotransferase (ALT) 56 U/L (14-59) Alkaline Phosphatase 113 U/L (46-116) Total Protein 8.1 g/dL (6.4-8.2) Albumin 3.7 g/dL (3.4-5.0) Albumin/Globulin Ratio 0.8 (1.0-1.7) L Lipase 140 U/L (73-393) Urine Collection Type Unknown Urine Color Yellow Urine Clarity Clear Urine pH 6.5 Urine Specific [place] 1.010 Urine Protein Negative mg/dL (NEG-TRACE) Urine Glucose (UA) Negative mg/dL (NEG) Urine Ketones (Stick) Negative mg/dL (NEG) Urine Blood Negative (NEG) Urine Nitrite Negative (NEG) Urine Bilirubin Negative (NEG) Urine Urobilinogen Dipstick 0.2 mg/dL (0.2 mg/dL) Urine Leukocyte Esterase Negative (NEG) Urine RBC 0 /HPF (0-2) Urine WBC 0 /HPF (0-4) Urine Squamous Epithelial Cells Mod /LPF Urine Bacteria Few /HPF (0-FEW) Urine Test Negative (NEG) Laboratory Tests 02/26/18 18:30 Laboratory Tests 02/26/18 18:30 EKG EKG [normal sinus rhythm a rate of 71 bpm, normal axis, normal intervals. Nonspecific ST/T changes noted.] Radiology/Procedures Radiology/Procedures [PROCEDURE: CT HEAD WO CONTRAST CT head without contrast: Reason for examination: Pseudoseizures. Recurrent seizure. Comparison is made to previous study dated 11/03/2016. Axial images were obtained through the brain. No contrast was administered. Exposure: One or more of the following individualized dose reduction techniques were utilized for this examination: 1. Automated exposure control 2. Adjustment of the mA and/or kV according to patient size 3. Use of iterative reconstruction technique. Ventricular systems are symmetric and not dilated. No midline shift is seen. There is no evidence of intracranial hemorrhage, infarct, mass or edema. No abnormalities are seen at the orbits. The paranasal sinuses show some mucosal disease in a few ethmoid air cells and in the left maxillary antrum. Mastoid air cells are clear. No acute abnormality seen in the calvarium. IMPRESSION: No acute intracranial abnormality. Mild mucosal disease in the left maxillary antrum and a few of the ethmoid air cells.] Course & Med Decision Making Course & Med Decision Making Pertinent Labs and Imaging studies reviewed. (See chart for details) [5:30 PM: The patient had a "seizure", and I was called to her bedside emergently. I witnessed the patient having rhythmic writhing episodes in bed. She exhibited purposeful movements, and responded to her sternal rub. The episode was consistent with a pseudoseizure.] 9:30 PM: There was some delay in obtaining IV access in the patient, but ultimately blood was obtained, has been reviewed, and is unremarkable. The patient's condition remained stable. Her family was at her bedside. The patient , when I discussed her test results with her, subsequently eloped from the emergency department prior to being discharged. I did stress importance, and my verbal discussions with the patient, of close follow-up with her neurologist. The patient did leave without obtaining any discharge instructions. Dragon Disclaimer Dragon Disclaimer This electronic medical record was generated, in whole or in part, using a voice recognition dictation system. Departure Departure Impression: Primary Impression: Pseudoseizure Disposition: 01 HOME, SELF-CARE Condition: STABLE Referrals: UNKNOWN PCP NAME (PCP) KRISTY SABILLON MD Feb 26, 2018 17:15
[2018-02-26 18:38] LABS: BASO # 0.1 x10^3/uL (0.0-0.2); BASO % 1 % (0-3); EOS # 0.1 x10^3/uL (0.0-0.7); EOS % 1 % (0-3); HEMATOCRIT 37.1 % (36.0-47.0); HEMOGLOBIN 12.3 g/dL (12.0-15.5); LYMPH # 3.6 x10^3/uL (1.0-4.8); LYMPH % 38 % (24-48); MEAN CORPUSCULAR HEMOGLOBIN 27 pg (25-35); MEAN CORPUSCULAR HGB CONC 33 g/dL (31-37); MEAN CORPUSCULAR VOLUME 81 fL (79-100); MONO # 0.7 x10^3/uL (0.0-1.1); MONO % 7 % (0-9); NEUT % 53 % (31-73); PLATELET COUNT 247 x10^3/uL (140-400); RED BLOOD COUNT 4.57 x10^6/uL (3.50-5.40); RED CELL DISTRIBUTION WIDTH 20.1 % (11.5-14.5); WHITE BLOOD COUNT 9.4 x10^3/uL (4.0-11.0)
[2018-02-26 18:51] LABS: CREATININE 0.9 mg/dL (0.6-1.0); GFR 84.8; POTASSIUM 3.5 mmol/L (3.5-5.1)
[2018-02-26 19:04] LABS: ALBUMIN 3.7 g/dL (3.4-5.0); ALBUMIN/GLOBULIN RATIO 0.8 (1.0-1.7); MAGNESIUM 2.1 mg/dL (1.8-2.4); TOTAL BILIRUBIN 0.2 mg/dL (0.2-1.0); TOTAL PROTEIN 8.1 g/dL (6.4-8.2)
[2018-02-26] MEDS ORDERED: ACETAMINOPHEN 325 MG TABLET. PO ONE (19:15)
[2018-02-26 19:17] LABS: BILIRUBIN,URINE NEGATIVE (NEG); CLARITY,URINE CLEAR; COLOR,URINE YELLOW; NITRITE,URINE NEGATIVE (NEG); PH,URINE 6.5; PROTEIN,URINE NEGATIVE (NEG-TRACE); UROBILINOGEN,URINE 0.2 mg/dL (0.2 mg/dL)
[2018-02-26 19:19] LABS: ANISOCYTOSIS MOD; PLT ESTIMATE ADEQUATE (ADEQUATE)
[2018-02-26 19:20] LABS: U PREG PATIENT NEGATIVE (NEG)
[2018-02-26 19:22] LABS: BACTERIA,URINE FEW /HPF (0-FEW); RBC,URINE 0 /HPF (0-2); SQUAMOUS EPITHELIAL CELL,UR MOD /LPF; WBC,URINE 0 /HPF (0-4)
--- NOTE | 2018-02-26 20:05 | RAD ---
CT head without contrast: Reason for examination: Pseudoseizures. Recurrent seizure. Comparison is made to previous study dated 11/03/2016. Axial images were obtained through the brain. No contrast was administered. Exposure: One or more of the following individualized dose reduction techniques were utilized for this examination: 1. Automated exposure control 2. Adjustment of the mA and/or kV according to patient size 3. Use of iterative reconstruction technique. Ventricular systems are symmetric and not dilated. No midline shift is seen. There is no evidence of intracranial hemorrhage, infarct, mass or edema. No abnormalities are seen at the orbits. The paranasal sinuses show some mucosal disease in a few ethmoid air cells and in the left maxillary antrum. Mastoid air cells are clear. No acute abnormality seen in the calvarium. IMPRESSION: No acute intracranial abnormality. Mild mucosal disease in the left maxillary antrum and a few of the ethmoid air cells. Electronically signed by: Rahel Tellez MD (02/26/2018 8:01 PM) [facility]
--- NOTE | 2018-02-26 22:55 | EKG ---
[facility] [address] [place] [address] Test Date: 2018-02-26 Test Time: 20:25:07 Pat Name: MANOLO LEUNG Department: Room: Gender: F Relay Tester: ALEJANDRINA : 1980 Requested By: KRISTY SABILLON Order Number: [id number] Reading MD: Nasim Powell Measurements Intervals [place] Rate: 70 P: 64 NM: 210 QRS: 78 QRSD: 76 T: 37 QT: 362 QTc: 393 Interpretive Statements SINUS RHYTHM LEFT ATRIAL ABNORMALITY NON SPECIFIC T ABNORMALITY Electronically Signed On 02-27-2018 11:29:15 CDT by Nasim Powell
== END 2018-02-26 21:30 | disposition home or self-care (01) ==
LOC: ER 16:55
DX: F44.5 Conversion disorder with seizures or convulsions (principal); G40.909 Epilepsy, unspecified, not intractable, without status epilepticus; I10 Essential (primary) hypertension; E03.9 Hypothyroidism, unspecified; G43.909 Migraine, unspecified, not intractable, without status migrainosus; F17.210 Nicotine dependence, cigarettes, uncomplicated; Z88.6 Allergy status to analgesic agent; Z88.8 Allergy status to other drugs, medicaments and biological substances
CPT/HCPCS: 36415; 70450; 80053; 81001; 81025; 83690; 83735; 85025; 93005; 99285-25

== ENCOUNTER 2018-05-31 05:12 | Emergency (ER) | payer MEDICAID, OTHER ==
[~2018-05-31] VITALS: Ht 157.5 cm; Wt 81.6 kg
[~2018-05-31 05:12] MED LIST changes: +ALBU2.5V8 IH; +GABA300C18 PO; -GABA300C8 PO; +HYDR-3164 PO; -HYDR-971 PO; -OXYC-323 PO; +OXYC1TAB15 PO; -PROAIR HFA8.5 GM IH
--- NOTE | 2018-05-31 05:21 | PHYS DOC ---
Past Medical History Past Medical History: Hypertension, Hyperthyroid, Migraines, Seizure Additional Past Medical Histor: clotting disorder/Protein deficiency, Trigeminal neuralgia, [place] Palsy Past Surgical History: Additional Past Surgical Histo: SKIN GRAFT Alcohol Use: Occasionally Drug Use: None Adult General Chief Complaint Chief Complaint: Seizure like activity HPI HPI 37-year-old female presents with report of seizure-like activity which occurred while in the emergency department with her boyfriend who was being seen as a patient. Patient reports history of seizures and typically has a seizure daily. Patient reports she has been compliant with her Trileptal and Keppra. Reports hitting her head and straining her neck with earlier seizure today. Patient reports has had 3 seizures today. Patient reports recent increased life stressors. Patient reports she typically has breakthrough seizures during times of increased stress. Denies . Review of Systems Review of Systems Constitutional: Denies fever or chills [] Eyes: Denies change in visual acuity, redness, or eye pain [] HENT: Denies nasal congestion or sore throat [] Respiratory: Denies cough or shortness of breath [] Cardiovascular: Denies chest pain or palpitations GI: Denies abdominal pain, nausea, vomiting, or diarrhea [] : Denies dysuria or hematuria [] Musculoskeletal: Denies back pain or joint pain [] Integument: Denies rash or laceration, reports contusion Neurologic: Reports headache and seizure-like activity; denies focal weakness or sensory changes [] Complete systems were reviewed and found to be within normal limits, except as documented in this note. Current Medications Current Medications Current Medications Medications (Trade) Dose Ordered Sig/Zay Start Time Stop Time Status Last Admin Dose Admin Acetaminophen (Tylenol) 1,000 mg 1X ONCE 05/31/18 07:15 05/31/18 07:16 DC 05/31/18 07:27 1,000 MG Azithromycin (Zithromax) 1,000 mg 1X ONCE 05/31/18 07:15 05/31/18 07:16 DC 05/31/18 07:27 1,000 MG Ceftriaxone Sodium (Rocephin) 1 gm 1X ONCE 05/31/18 07:15 18 07:16 DC 05/31/18 07:27 1 GM Dexamethasone Sodium Phosphate (Decadron) 10 mg 1X ONCE 05/31/18 05:30 05/31/18 05:31 DC 05/31/18 05:47 10 MG Fentanyl Citrate (Fentanyl 2ml Vial) 50 mcg 1X ONCE 05/31/18 06:15 05/31/18 06:16 DC 05/31/18 06:22 50 MCG Levetiracetam 500 mg/Dextrose 105 ml @ 420 mls/hr 1X STAT 05/31/18 07:02 05/31/18 07:16 DC 05/31/18 07:23 420 MLS/HR Lorazepam (Ativan) 0.5 mg 1X ONCE 05/31/18 05:30 05/31/18 05:31 DC 05/31/18 05:46 0.5 MG Sodium Chloride 1,000 ml @ 1,000 mls/hr 1X ONCE 05/31/18 05:30 05/31/18 06:29 DC 05/31/18 05:47 1,000 MLS/HR Allergies Allergies Allergies Coded Allergies Type Severity Reaction Last Updated Verified ibuprofen Allergy Severe Angioedema. 11/02/16 No ketorolac Allergy Severe Angioedema 11/02/16 Yes naproxen Allergy Severe ANGIOEDEMA 11/02/16 Yes lisinopril Allergy Unknown 09/09/17 Yes prochlorperazine Allergy Unknown 09/09/17 Yes Physical Exam Physical Exam Constitutional: Well developed, well nourished, no acute distress, non-toxic appearance. [] HENT: Normocephalic, atraumatic, oropharynx moist, nose normal. [] Eyes: PERRL, EOMI, conjunctiva normal, no discharge. [] Neck: Paraspinal tenderness, supple, no meningeal signs] Cardiovascular: Heart rate regular rhythm, no murmur [] Lungs & Thorax: Bilateral breath sounds clear to auscultation [] Abdomen: Soft, no tenderness Skin: Warm, dry, no erythema, no rash. [] ] Extremities: No tenderness, ROM intact, no edema. [] Neurologic: Alert, normal motor function, normal sensory function, no focal deficits noted. [] Psychologic: Affect flat, slow to respond Current Patient Data Vital Signs Vital Signs Date Time Temp Pulse Resp B/P (MAP) Pulse Ox O2 Delivery O2 Flow Rate FiO2 05/31/18 05:24 98.6 98 18 123/75 (91) 100 Room Air 98.6 Lab Values Laboratory Tests Test 05/31/18 06:05 White Blood Count 7.9 x10^3/uL (4.0-11.0) Red Blood Count 4.40 x10^6/uL (3.50-5.40) Hemoglobin 12.0 g/dL (12.0-15.5) Hematocrit 36.3 % (36.0-47.0) Mean Corpuscular Volume 83 fL (79-100) Mean Corpuscular Hemoglobin 27 pg (25-35) Mean Corpuscular Hemoglobin Concent 33 g/dL (31-37) Red Cell Distribution Width 16.4 % (11.5-14.5) H Platelet Count 243 x10^3/uL (140-400) Neutrophils (%) (Auto) 52 % (31-73) Lymphocytes (%) (Auto) 35 % (24-48) Monocytes (%) (Auto) 11 % (0-9) H Eosinophils (%) (Auto) 2 % (0-3) Basophils (%) (Auto) 1 % (0-3) Neutrophils # (Auto) 4.1 x10^3uL (1.8-7.7) Lymphocytes # (Auto) 2.7 x10^3/uL (1.0-4.8) Monocytes # (Auto) 0.9 x10^3/uL (0.0-1.1) Eosinophils # (Auto) 0.2 x10^3/uL (0.0-0.7) Basophils # (Auto) 0.0 x10^3/uL (0.0-0.2) Sodium Level 138 mmol/L (136-145) Potassium Level 4.4 mmol/L (3.5-5.1) Chloride Level 102 mmol/L (98-107) Carbon Dioxide Level 25 mmol/L (21-32) Anion Gap 11 (6-14) Blood Urea Nitrogen 13 mg/dL (7-20) Creatinine 1.0 mg/dL (0.6-1.0) Estimated GFR (Cockcroft-Gault) 75.1 BUN/Creatinine Ratio 13 (6-20) Glucose Level 98 mg/dL (70-99) Lactic Acid Level 1.3 mmol/L (0.4-2.0) Calcium Level 9.0 mg/dL (8.5-10.1) Total Bilirubin 0.1 mg/dL (0.2-1.0) L Aspartate Amino Transferase (AST) 23 U/L (15-37) Alanine Aminotransferase (ALT) 28 U/L (14-59) Alkaline Phosphatase 88 U/L (46-116) Creatine Kinase 83 U/L (26-192) Total Protein 7.6 g/dL (6.4-8.2) Albumin 3.6 g/dL (3.4-5.0) Albumin/Globulin Ratio 0.9 (1.0-1.7) L Laboratory Tests 05/31/18 06:05 Laboratory Tests 05/31/18 06:05 EKG EKG [] Radiology/Procedures Radiology/Procedures [] Course & Med Decision Making Course & Med Decision Making Pertinent Labs and Imaging studies reviewed. (See chart for details) Patient with past medical history of seizures who is currently taking Trileptal and Keppra presents with report of breakthrough seizure while she was in the emergency department for her boyfriend. Patient reports increased life stressors which typically trigger her seizure-like activity. Patient reports some headache and neck pain. Reports had fallen and struck something with her prior seizure-like activity at her family members. Denies . Labs obtained and did CT head/cervical spine also pending. Sign out given to Dr. Prakash for further evaluation and final disposition. Discussed current findings and plan with patient, who acknowledges understanding and agreement. lulu ct head/cspine neg acute labs look good kepppra and prseumptive std tx given as partner checked in at same time for std symptoms. noted goiter advised f/u for this. Dragon Disclaimer Dragon Disclaimer This electronic medical record was generated, in whole or in part, using a voice recognition dictation system. Departure Departure Impression: Primary Impression: Breakthrough seizure Disposition: HOME, SELF-CARE Condition: STABLE Referrals: UNKNOWN PCP NAME (PCP) CHAS DOWELL DO May 31, 2018 05:21 CELESTINE PRAKASH MD May 31, 2018 07:34
[2018-05-31] MEDS ORDERED: DEXAMETHASONE SOD PHOS 20 MG/5 ML VIAL. IV ONE (05:30)
[2018-05-31] MEDS ORDERED: IV NORMAL SALINE 1000ML BAG 1,000 ML IV ONE (05:30)
[2018-05-31 06:15] LABS: BASO % 1 % (0-3); EOS # 0.2 x10^3/uL (0.0-0.7); EOS % 2 % (0-3); HEMATOCRIT 36.3 % (36.0-47.0); LYMPH # 2.7 x10^3/uL (1.0-4.8); LYMPH % 35 % (24-48); MEAN CORPUSCULAR HEMOGLOBIN 27 pg (25-35); MEAN CORPUSCULAR HGB CONC 33 g/dL (31-37); MEAN CORPUSCULAR VOLUME 83 fL (79-100); MONO # 0.9 x10^3/uL (0.0-1.1); MONO % 11 % (0-9); NEUT # 4.1 x10^3uL (1.8-7.7); NEUT % 52 % (31-73); PLATELET COUNT 243 x10^3/uL (140-400); RED CELL DISTRIBUTION WIDTH 16.4 % (11.5-14.5); WHITE BLOOD COUNT 7.9 x10^3/uL (4.0-11.0)
[2018-05-31] MEDS ORDERED: fentaNYL PF VIAL 100 MCG/2 ML VIAL IV ONE (06:15)
--- NOTE | 2018-05-31 06:35 | RAD ---
PQRS Compliance Statement: One or more of the following individualized dose reduction techniques were utilized for this examination: 1. Automated exposure control 2. Adjustment of the mA and/or kV according to patient size 3. Use of iterative reconstruction technique CT HEAD AND CERVICAL SPINE WITHOUT CONTRAST History: SEIZURE/BASILIO/NECK PAIN Comparison: CT head without contrast, February 26, 2018. Procedure: Axial images are obtained of the head from the skull base through the vertex without IV contrast. Noncontrast helical CT of the cervical spine was performed. Axial, sagittal, and coronal reconstructions were obtained. Findings: The ventricles and sulci are normal for the patient's age. No mass-effect, midline shift, hemorrhage or obvious acute infarction is identified. Basilar cisterns are patent. Bone windows demonstrate no significant calvarial abnormality. The visualized paranasal sinuses are clear. Mastoid air cells are well aerated. There is no evidence of acute fracture or acute malalignment of the cervical spine. The facet joints are intact. The vertebral body height and alignment are maintained in the cervical spine. There is degenerative endplate spurring of C4/C5 and C5/C6 and C6/C7. The craniovertebral junction is normal. The right thyroid lobe is enlarged. The visualized lung apices are clear. IMPRESSION: 1. No acute intracranial abnormality. 2. No acute fracture of the cervical spine. 3. Probable right goiter. Electronically signed by: Tarun Celaya MD (05/31/2018 6:31 AM) [id number]
[2018-05-31 06:38] LABS: GFR 75.1; POTASSIUM 4.4 mmol/L (3.5-5.1)
[2018-05-31 06:44] LABS: ALBUMIN 3.6 g/dL (3.4-5.0); ALBUMIN/GLOBULIN RATIO 0.9 (1.0-1.7); TOTAL BILIRUBIN 0.1 mg/dL (0.2-1.0); TOTAL PROTEIN 7.6 g/dL (6.4-8.2)
[2018-05-31] MEDS ORDERED: levETIRAcetam 500 MG in IV DEXTROSE 5% 100ML 100 ML IV STA (07:02)
[2018-05-31] MEDS ORDERED: cefTRIAXone IV Push 1 GM VIAL. IVP ONE (07:15)
[2018-05-31] MEDS ORDERED: ACETAMINOPHEN 500 MG TABLET PO ONE (07:15)
[2018-05-31] MEDS ORDERED: AZITHROMYCIN 250 MG TABLET. PO ONE (07:15)
[2018-05-31 07:30] VITALS: BP 122/70
[2018-05-31] MEDS ORDERED: diazePAM 5 MG TABLET PO ONE (07:45)
== END 2018-05-31 08:08 | disposition home or self-care (01) ==
LOC: ER 05:12
DX: R56.9 Unspecified convulsions (principal); G43.909 Migraine, unspecified, not intractable, without status migrainosus; I10 Essential (primary) hypertension; E05.90 Thyrotoxicosis, unspecified without thyrotoxic crisis or storm; Z88.5 Allergy status to narcotic agent; Z88.6 Allergy status to analgesic agent; Z88.8 Allergy status to other drugs, medicaments and biological substances
CPT/HCPCS: 36415; 70450; 72125; 80053; 82550; 83605; 84702; 85025; 96365; 96375; 99284; J0696; J1100; J1953; J2060; J3010; J7030; Q0144